=== PATIENT | male | born 1925 | race Caucasian/White ===

== ENCOUNTER → 2016-08-31 | Outpatient (CLI) | payer MEDICARE ==
--- NOTE | 2016-08-31 14:39 | DIAGNOSTIC IMAGING REPORT ---
LEFT HEEL 2 VIEWS CLINICAL HISTORY: Left heel pain. No reported history of trauma. FINDINGS: AP and lateral views of the left heel are obtained. No prior studies are available for comparison at the time of dictation. The skeletal structures are osteopenic. No fracture is seen. There are large dorsal and plantar calcaneal enthesophytes. A small ankle joint effusion is suspected. Mild soft tissue swelling is present around ankle. There is advanced atherosclerotic calcification of the regional arteries. IMPRESSION: 1. No acute bony abnormality is seen in the left heel. 2. An ankle joint effusion and soft tissue swelling are noted. 3. Large heel spurs. Electronically signed by: Moise Soria M.D. 08/31/2016 2:37 PM Dictated Date/Time: 08/31/2016 2:36 PM
== END | disposition home or self-care (01) ==
LOC: C.RAD1850 14:10
PROVIDERS: ATTEND Nurse Practitioner Family
DX: M79.672 Pain in left foot (principal); M25.472 Effusion, left ankle; M77.32 Calcaneal spur, left foot

== ENCOUNTER → 2016-10-02 | Outpatient (CLI) | payer MEDICARE | END | disposition home or self-care (01) | LOC: C.MAMM 15:29 | PROVIDERS: ATTEND Nurse Practitioner Family | DX: M81.0 Age-related osteoporosis without current pathological fracture (principal) ==

== ENCOUNTER → 2016-11-24 | Outpatient (CLI) | payer MEDICARE ==
[~2016-11-24] VITALS: Ht 177.8 cm; Wt 86.4 kg
[2016-11-24 14:27] VITALS: BP 127/73; PULSE 67; Ht 177.8 cm; Wt 86.4 kg
== END | disposition home or self-care (01) ==
LOC: C.NEUR 13:49
PROVIDERS: ATTEND Internal Medicine Pulmonary Disease
DX: G47.33 Obstructive sleep apnea (adult) (pediatric) (principal); Z99.89 Dependence on other enabling machines and devices

== ENCOUNTER → 2016-11-28 | Outpatient (CLI) | payer MEDICARE ==
[2016-11-28 10:45] LABS: BASO % 0.3 %; BASO ABS # 0.02 K/uL (0-0.2); COMPLETE YES; HEMATOCRIT 43.1 % (42-52); IG% 0.6 %; LYMPH % 16.8 %; LYMPH ABS # 1.13 K/uL (1.2-3.4); MEAN CELL VOLUME 92.1 fL (80-100); MEAN CORPUSCULAR HGB CONC 33.6 g/dl (32-36); MEAN PLATELET VOLUME 10.1 fL (7.4-10.4); MONO % 10.3 %; PLATELET COUNT 213 K/uL (130-400); RED BLOOD COUNT 4.68 M/uL (4.7-6.1); WHITE BLOOD COUNT 6.71 K/uL (4.8-10.8)
[2016-11-28 10:50] LABS: ALT/SGPT 22 U/L (12-78); BLOOD UREA NITROGEN 17 mg/dl (7-18); CARBON DIOXIDE 27 mmol/L (21-32); CHLORIDE 108 mmol/L (98-107); CHOLESTEROL 110 mg/dl (0-200); GLUCOSE 94 mg/dl (70-99); SODIUM 144 mmol/L (136-145); TRIGLYCERIDES 65 mg/dl (0-150); VERY LOW DENSITY LIPOPROT CALC 13 mg/dl
[2016-11-28 10:54] LABS: CALCIUM 9.2 mg/dl (8.5-10.1)
[2016-11-28 11:01] LABS: ALB/GLOB RATIO 1.3 (0.9-2); ALKALINE PHOSPHATASE 37 U/L (45-117); AST/SGOT 24 U/L (15-37); CHOLESTEROL/HDL RATIO 3.1; HDL CHOLESTEROL 35 mg/dl; LDL CHOLESTEROL CALCULATED 62 mg/dl
== END | disposition home or self-care (01) ==
LOC: C.LAB1850 09:13
PROVIDERS: ATTEND Nurse Practitioner Family
DX: R97.20 Elevated prostate specific antigen [PSA] (principal); E03.9 Hypothyroidism, unspecified; E78.5 Hyperlipidemia, unspecified; G47.33 Obstructive sleep apnea (adult) (pediatric); J45.909 Unspecified asthma, uncomplicated; N40.0 Benign prostatic hyperplasia without lower urinary tract symptoms; M79.672 Pain in left foot

== ENCOUNTER → 2017-01-30 | Outpatient (CLI) | payer MEDICARE | END | disposition home or self-care (01) | LOC: C.PATHSPEC 17:01 | PROVIDERS: ATTEND Urology | DX: R31.9 Hematuria, unspecified (principal) ==

== ENCOUNTER → 2017-02-07 | Outpatient (CLI) | payer MEDICARE ==
[2017-02-07 12:35] LABS: BLOOD UREA NITROGEN 24 mg/dl (7-18); BUN/CREATININE RATIO 18.4 (10-20)
== END | disposition home or self-care (01) ==
LOC: C.LAB1850 10:06
PROVIDERS: ATTEND Nurse Practitioner Family
DX: R31.9 Hematuria, unspecified (principal); E03.9 Hypothyroidism, unspecified

== ENCOUNTER → 2017-02-15 | Outpatient (CLI) | payer MEDICARE ==
[~2017-02-15] MED LIST: OPTIRAY 320 IV PRN
--- NOTE | 2017-02-15 13:38 | DIAGNOSTIC IMAGING REPORT ---
ABD/PELVIS COMBO CLINICAL HISTORY: 89 years-old Male presenting with hematuria. TECHNIQUE: Multidetector CT of the abdomen and pelvis was performed before and after the administration of intravenous contrast. IV contrast: 119 mL of Optiray 320. A dose lowering technique was used consistent with the principles of ALARA (as low as reasonably achievable). COMPARISON: None. CT DOSE (mGy.cm): The estimated cumulative dose is 1694.22 mGycm. FINDINGS: Sh[employer] Supervisor topogram: Scoliosis. Lung bases: Ringlike opacity in the left lung base. Dependent opacities bilaterally at the lung bases, possibly atelectasis. Normal heart size. Coronary artery calcification. No pericardial or pleural effusion. Liver: Normal morphology. Normal density. No liver lesion. Patent hepatic vasculature. Biliary: No intrahepatic or extrahepatic biliary ductal dilatation. Normal gallbladder. Pancreas: Mild parenchymal atrophy. Duodenal diverticulum noted at the pancreatic head. Spleen: Normal. Adrenal glands: Normal. Kidneys and ureters: Nonobstructing 6 mm calculus at the lower pole left kidney. Ureters normal. Normal excretion bilaterally. No hydronephrosis. Multiple well-defined hypodensities in the kidneys bilaterally, likely simple cyst but some too small to characterize. Gastrointestinal tract: Chowdhury colonic diverticulosis. Normal appendix. No bowel obstruction. Duodenal diverticulum noted. Peritoneal cavity: No free fluid or intraperitoneal gas. Bladder: Bladder wall thickening noted laterally at the dome although somewhat diffuse, possibly indicating chronic outlet obstruction. Pelvic organs: Massively enlarged prostate likely due to benign prostatic hyperplasia. Marked median lobe hypertrophy. Vasculature: Atherosclerosis of the abdominal aorta, which demonstrates infrarenal ectasia possible short segment dissection. The ectatic segment measures up to 2.8 cm in diameter. IVC patent. Lymph nodes: No enlarged lymph nodes in the abdomen or pelvis. Abdominal wall: Normal. Musculoskeletal: Degenerative changes of the spine. IMPRESSION: 1. Nonobstructing 6 mm left lower pole calculus. 2. Marked prostatomegaly. 3. Bladder wall trabeculation likely indicating chronic outlet obstruction. 4. Ringlike opacity at the left lung base, nonspecific but may indicate organizing pneumonia as a consequence of recent or resolving infection. Bibasilar opacities could similarly represent atelectasis, aspiration, or postinfectious/postinflammatory changes. Electronically signed by: Nathan Stapleton M.D. 02/15/2017 1:37 PM Dictated Date/Time: 02/15/2017 1:29 PM
== END | disposition home or self-care (01) ==
LOC: C.CTS 12:54
PROVIDERS: ATTEND Urology
DX: R31.9 Hematuria, unspecified (principal); N20.0 Calculus of kidney; N40.1 Benign prostatic hyperplasia with lower urinary tract symptoms

== ENCOUNTER → 2017-06-14 | Outpatient (CLI) | payer MEDICARE ==
[2017-06-14 09:42] LABS: BASO % 0.2 %; BASO ABS # 0.01 K/uL (0-0.2); COMPLETE YES; EOS % 1.2 %; HEMATOCRIT 45.1 % (42-52); IG% 0.3 %; LYMPH ABS # 1.12 K/uL (1.2-3.4); MEAN CELL VOLUME 92.8 fL (80-100); MEAN CORPUSCULAR HGB CONC 32.4 g/dl (32-36); MEAN PLATELET VOLUME 9.6 fL (7.4-10.4); MONO % 12.6 %; NEUT % 66.7 %; PLATELET COUNT 208 K/uL (130-400); RED BLOOD COUNT 4.86 M/uL (4.7-6.1); WHITE BLOOD COUNT 5.89 K/uL (4.8-10.8)
[2017-06-14 09:57] LABS: ALKALINE PHOSPHATASE 36 U/L (45-117); ALT/SGPT 23 U/L (12-78); AST/SGOT 23 U/L (15-37); BLOOD UREA NITROGEN 21 mg/dl (7-18); BUN/CREATININE RATIO 17.7 (10-20); CALCIUM 8.8 mg/dl (8.5-10.1); CARBON DIOXIDE 29 mmol/L (21-32); CHLORIDE 107 mmol/L (98-107); CHOLESTEROL 105 mg/dl (0-200); CHOLESTEROL/HDL RATIO 2.3; CREATININE 1.19 mg/dl (0.60-1.40); GLUCOSE 98 mg/dl (70-99); HDL CHOLESTEROL 45 mg/dl; LDL CHOLESTEROL CALCULATED 49 mg/dl; POTASSIUM 4.2 mmol/L (3.5-5.1); SODIUM 139 mmol/L (136-145); TRIGLYCERIDES 54 mg/dl (0-150); VERY LOW DENSITY LIPOPROT CALC 11 mg/dl
== END | disposition home or self-care (01) ==
LOC: C.LAB1850 08:47
PROVIDERS: ATTEND Nurse Practitioner Family
DX: R97.20 Elevated prostate specific antigen [PSA] (principal); E03.9 Hypothyroidism, unspecified; E78.5 Hyperlipidemia, unspecified; J45.909 Unspecified asthma, uncomplicated; N40.0 Benign prostatic hyperplasia without lower urinary tract symptoms